=== PATIENT | female | born 1940 | race Caucasian/White ===

== ENCOUNTER 2016-12-17 16:30 | Outpatient (CLI) | payer MEDICARE ==
--- NOTE | 2016-12-17 20:51 | MRI ---
LUMBAR SPINE MRI NONCONTRAST 12/17/16 INDICATION: Spinal stenosis of lumbar region. No prior imaging comparison. FINDINGS: The conus medullaris demonstrates termination at the L1 level. There is grade I spondylolisthesis at L4-5. Multilevel end plate degenerative change with multilevel Schmorl's node formation present thr oughout the lumbar spine. There are Modic type I and II end plate degenerative changes of the L1, L2 , and L3 vertebral segments. Multilevel bilateral mild to moderate facet osteoarthritis is present. L5-S1: There is mild effacement of ventral thecal sac due to disc osteophyte complex without high gr jaimee left foraminal stenosis. There is mild narrowing of the right neural foramen. L4-5: There is severe central canal stenosis as the result of broad based disc osteophyte. Spondylol isthesis and bilateral prominent facet hypertrophy. There is mild right neural foraminal narrowing. No high grade left foraminal narrowing. L3-4: There is moderate central canal stenosis as the result of broad based disc osteophyte complex and facet hypertrophy. Mild to moderate bilateral neural foraminal stenosis present. L2-3: Broad based disc osteophyte results in mild narrowing of the central canal, mild left and mini mal right neural foraminal narrowing. L1-2: Trace retrolisthesis is present. There is disc osteophyte complex with mild narrowing of the c entral canal. Mild to moderate left and mild right neural foraminal narrowing present. IMPRESSION: Multilevel degenerative change throughout the lumbar spine. The findings are most pronounced at L4-5 where there is severe central canal stenosis, with near complete obliteration of the thecal sac. POS: NEEL
== END 2016-12-17 16:31 | disposition home or self-care (01) ==
LOC: MRI 16:30
PROVIDERS: ATTEND Internal Medicine
DX: M47.896 Other spondylosis, lumbar region (principal)
CPT/HCPCS: 72148

== ENCOUNTER 2017-04-07 22:57 | Inpatient (IN) | payer MEDICARE ==
[2017-04-07 23:51] LABS: #Eosinphils 0.2 thou/uL (0.0-0.7); #Lymphocytes 2.8 thou/uL (1.20-3.40); #Neutrophils 5.6 thou/uL (1.40-6.50); %Basophils 0.3 % (0.0-1.0); %Eosinophils 1.8 % (0.0-10.0); %Lymphocytes 29.1 % (21.0-51.0); %Monocytes 10.3 % (0.0-10.0); %Neutrophils 58.5 % (42.0-75.0); Hemoglobin 10.9 g/dL (12.0-16.0); Mean Corpuscular HGB CONC 32.5 g/dL (32.0-36.0); Mean Corpuscular Hemoglobin 30.1 pg (27.0-31.0); Mean Corpuscular Volume 92.8 fl (81.0-99.0); Mean Platelet Volume 8.6 fL (7.4-10.4); Platelet Count 296 thou/uL (130-400); RBC Distribution Width 11.8 % (11.5-14.5); Red Blood Cell (RBC) Count 3.63 mill/uL (4.20-5.40); White Blood Cell (WBC) Count 9.5 thou/uL (4.8-10.8)
[2017-04-08 00:11] LABS: ALT (SGPT) 17 U/L (8-55); AST (SGOT) 18 U/L (5-34); Alkaline Phosphatase 73 U/L (40-150); Anion Gap 17 mmol/L (10-20); BUN (Urea Nitrogen) 18 mg/dL (9.8-20.1); Bilirubin, Total 0.4 mg/dL (0.2-1.2); Calc. Creatinine Clearance 0 mL/min (70-130); Calcium 9.3 mg/dL (7.8-10.44); Carbon Dioxide 18 mmol/L (23-31); Chloride 107 mmol/L (98-107); Estimated GFR-MDRD 57; Globulin 2.8 g/dL (2.4-3.5); Glucose 86 mg/dL (83-110); Potassium 3.8 mmol/L (3.5-5.1); Protein, Total 6.8 g/dL (6.0-8.3); Sodium 138 mmol/L (136-145)
[2017-04-08 00:14] LABS: CKMB 2.7 ng/mL (0-6.6); Troponin I 0.014 ng/mL (< 0.028)
[2017-04-08] MEDS ORDERED: Ondansetron ODT 4 MG TAB SL PRN (03:22)
[2017-04-08] MEDS ORDERED: Ondansetron HCl/PF 4 MG/2 ML Vial IVP PRN (03:22)
[2017-04-08] MEDS ORDERED: Acetaminophen 325 MG TAB PO PRN (03:22)
[2017-04-08 03:39] LABS: Troponin I 0.015 ng/mL (< 0.028)
[2017-04-08] MEDS ORDERED: Acetaminophen 650 MG Suppository PR PRN (04:22)
[2017-04-08 06:16] LABS: Cardiac Risk 3.5 (Less than 4.5); Magnesium 2.1 mg/dL (1.6-2.6); Phosphorus 3.3 mg/dL (2.3-4.7)
[2017-04-08 06:20] LABS: Troponin I 0.015 ng/mL (< 0.028)
[2017-04-08 06:35] LABS: Ferritin 12.5 ng/mL (10-291); Thyroid Stimulating Hormone 3.4656 uIU/mL (0.35-4.94)
--- NOTE | 2017-04-08 06:46 | HP-2 ---
DATE OF ADMISSION: 04/08/2017 CODE STATUS: Full. PRIMARY CARE PHYSICIAN: Kierra almanza. ATTENDING: Dr. Harsh Martin RESIDENT: Dr. Loc Courtney, PGY1 SPECIALIST: Green Plumber, she is to see Dr. Godinez. CHIEF COMPLAINT: Short of breath and lightheadedness. HISTORY OF PRESENT ILLNESS: This is a 76-year-old female that comes in with chief complain t of shortness of breath and lightheaded. She says that she has been having a really bad shortness o f breath for the last couple of days to the point where she has got lightheaded. Her daughter was in the room and said that she came to let her in at the gate and for a short period did not know how to get home afterwards. She has also been having extreme fatigue. She has had the fatigue and tiredne ss for months now, but the fatigue seems to have been getting worse over the last week. Shortness of breath has been present for a few months as well, but it seems to have gotten worse over the last co uple of days. She reports that she goes to bed around 10:30 and can sleep until noon, sometimes or e oni sleep until 5:31 at one time. She said that she is getting good amount of hours of sleep, but is still feeling really tired when she gets up. She thought that she might have had a sinus infection last week. Reports having nasal congestion and some head pain right in the frontal area, also report s having a little bit of a cough. She also reports that she has had head sweating for years, but say s that over the last few days it has really gotten bad as well. Denies any fevers or chills. Denies any recent sick contacts. Reports that the last time she had a stress test was 4 years ago. Denies any chest pain. Denies any nausea, vomiting, diarrhea or constipation. Denies any rashes. Reports that she does have chronic muscle pain from her fibromyalgia. She said that with the shortness of b reath, she usually has a hard time over the long distances walking. She used to do okay, but she nba d when she will go out even in the past she would have to use a scooter at stores and stuff, but she says now she gets short of breath just walking around her house and doing little minor activities as well, so that is new. REVIEW OF SYSTEMS: All review of systems not listed in the HPI are otherwise negative at this time. PAST MEDICAL HISTORY: Asthma, hypertension, bronchitis, and fibromyalgia. PAST SURGICAL HISTORY: Tonsillectomy. ALLERGIES: PENICILLIN, SULFUR, and IODINE. MEDICATIONS: 1. Omeprazole 20 mg 3 times daily. 2. Aspirin 81 mg daily. 3. D3 1000 daily. 4. half to 1 tab at bedtime. 5. Simvastatin 20 mg or 1/2 tab. 6. Atorvastatin 20 mg daily. 7. Venlafaxine mg daily. 8. Amlodipine 5 mg daily. 9. Lisinopril 20 mg daily. 10. Tramadol 37.5/325 mg as needed. SOCIAL HISTORY: Never a smoker. Drinks occasional alcohol. No illicit drug use. PHYSICAL EXAMINATION: VITAL SIGNS: Blood pressure is 136/48, pulse is 47, respirations are 15, temperature is 98.7, pulse ox 97% on room air. Current weight 100.7 kilograms. GENERAL: She is alert and oriented x3. Well-developed, obese, appropriately interactive. Asked her to spell world backward and was able to spell it without any trouble at all. EYES: Conjunctivae within normal limits. ENT: Nasal mucosa and oropharynx within normal limit. NECK: Supple, no lymphadenopathy, no thyromegaly, no bruits, no JVD. CARDIOVASCULAR: Regular rate and rhythm, no murmurs, no gallops. Radial pulses, pedal pulses palpat ed bilaterally. RESPIRATORY: Normal breathing effort, no retractions. LUNGS: Clear to auscultation bilaterally. SKIN: Warm, dry. No lesions, no rashes. ABDOMEN: Soft, nontender to palpation. Bowel sounds are normal. There are no masses or distention. EXTREMITIES: No edema, no pitting. MUSCULOSKELETAL: Structure within normal limits, tone within normal limits. Full range of motion. NEUROLOGIC: No focal neuro deficits. Sensation within normal limits. Does have some pain on palpat ion of her upper extremities and her neck she says due to her fibromyalgia. LABORATORY DATA: White blood cell count 9.5, hemoglobin 10.9, hematocrit 33.6, MCV 92.8, platelets 2 96. Sodium 138, potassium 3.8, chloride 107, bicarb 18, BUN 18, creatinine 0.95, glucose 86. GFR is 57. CK-MB is 2.7, troponin 0.014, calcium is 9.3, total protein 7.8, albumin 4.0, total bilirubin 0 .4, AST 18, ALT 17, alkaline phosphatase 73. EKG showed a little bit of sinus tony and right bundle block. Chest x-ray read is still pending. ASSESSMENT AND PLAN: A 76-year-old female with increasing shortness of breath over the las t few days. 1. Symptomatic bradycardia. Ever since she has gotten here she has been bradycardic in the 40s. It could be a reason causing her shortness of breath, increasing, never had any heart history or report ed heart attack. We will admit to telemetry for observation. Continue to follow her on the monitor. We will likely need to consult Cardiology in the morning and await recommendations. The last time she got a stress test was 4 years ago and it was negative. May need a stress test. We will continue to trend her troponins. We will check her magnesium, phosphorus, fasting lipid panel and check a TS H as well. Some of her symptoms are increased fatigue and bradycardia may be related to hypothyroidi sm. Also, with her increased tiredness and sleeping may have a possible obstructive sleep apnea can be reason being bradycardic. I did order a CPAP to see if it helps with her symptoms. Try and use it at night and see if it helps her with sleep and tiredness. 2. Hypertension. We will continue her home medications. 3. Asthma and bronchitis. We will do DuoNebs p.r.n. She also reported having nasal congestion and cough for the last week. Maybe some sinusitis. I have prescribed Mucinex DM to see if that helped w ith any of that. 4. Fibromyalgia. I will continue her home medications. 5. Deep venous thrombosis prophylaxis, Lovenox.
--- NOTE | 2017-04-08 07:37 | RAD ---
FRONTAL RADIOGRAPH CHEST: Date: 04-07-17 Comparison: None. History: Confusion, dizziness. FINDINGS: Mild increased linear interstitial density is noted. There is no pneumothorax, pleural fluid, lobar c onsolidation, or alveolar edema. There is mild prominence of the right hilar shadow, significance uncertain. IMPRESSION: 1. Diffuse mild interstitial prominence with no focal consolidation or alveolar edema. 2. Mild prominence of the right hilar shadow, a nonspecific finding. Recommend PA and lateral imaging of the chest for further assessment. Code T POS: NEEL
[2017-04-08] MEDS: guaiFENesin/DM ER PO SCH ×2 (08:36→20:35)
[2017-04-08] MEDS: Enoxaparin Sodium 40 MG/0.4 ML SYRINGE SC SCH (08:36)
--- NOTE | 2017-04-08 12:13 | CON ---
DATE OF CONSULTATION: 04/08/2017 HISTORY OF PRESENT ILLNESS: The patient is a pleasant 76-year-old woman who presents with dyspnea and weakness. The patient states she previously had suffered a silent myocardial infarction. The patient presented to the hospital with increasing dyspnea. She noticed shortness of breath with minimal exertion. The patient denies having any PND or orthopnea. The patient denies any syncopal episode. She states at times she has felt lightheaded. The patient has several cardiac risk factors including hypertension and hypercholesterolemia. PAST MEDICAL HISTORY: 1. Hypertension. 2. History of silent myocardial infarction. 3. Asthma. 4. Fibromyalgia. PAST SURGICAL HISTORY: Tonsillectomy. ALLERGIES: PENICILLIN, SULFA and IODINE. SOCIAL HISTORY: She is a nonsmoker. MEDICATIONS ON ADMISSION: Zocor 20 at bedtime, lisinopril 20 mg daily, amlodipine 5 daily, trazodone 50 daily, omeprazole 20 daily, aspirin 81 daily, and venlafaxine 150 mg daily. REVIEW OF SYSTEMS: Ten-point system otherwise unremarkable. No history of easy bruising, bleeding, or bright red blood per rectum. PHYSICAL EXAMINATION: GENERAL: This is an obese woman, in no acute distress. VITAL SIGNS: Blood pressure 120/57. NECK: No jugular venous distention, no carotid bruits. LUNGS: Clear to auscultation. HEART: Regular rate and rhythm. Normal S1, S2. No murmurs. ABDOMEN: Distended. EXTREMITIES: Showed trace edema. SKIN: Warm and dry. NEUROLOGIC: Nonfocal. VASCULAR: Radial pulses 2+. LABORATORY RESULTS: Her sodium was 138, potassium 3.8, chloride 107, bicarbonate 18, BUN 18, creatinine 0.95, glucose is 57, troponin was 0.015. BNP is 203. Her white blood cell count is 9.5, hemoglobin 10.9, hematocrit 33.6 , platelets are 296. EKG revealed sinus bradycardia with second degree Mobitz type 1 with a right bundle-branch block. ticket speculator revealed second degree Mobitz type 2. IMPRESSION: 1. Dyspnea. 2. Symptomatic bradycardia with second degree Mobitz type 2. 3. Hypertension. 4. Asthma. 5. Fibromyalgia. 6. Dyslipidemia. 7. Obesity. This patient presents with symptomatic bradycardia with second degree AV block, Mobitz type 2. We will check the patient's echocardiogram to evaluate her left ventricular function. From a cardiac standpoint, with her symptomatic heart block, we would recommend placement of electronic pacemaker. We will follow this patient with you throughout her hospitalization. ELMER
[2017-04-08] MEDS ORDERED: PROVENTIL INHALER 6.7 G (200 INHALATIONS) INH PRN (13:18)
[2017-04-08] MEDS ORDERED: Oxybutynin 5 MG TAB PO PRN (13:18)
[2017-04-08] MEDS ORDERED: Non-Formulary Item 1 EACH (Zolpidem Tartrate [Ambien] 10 MG) PO PRN (13:18)
--- NOTE | 2017-04-08 19:06 | NM ---
VQ SCAN 04/08/17 PROVIDED CLINICAL HISTORY: Dyspnea. FINDINGS: Correlation is made with chest radiograph performed 04/07/17. 22 millicuries Xenon 133 inhalational and 5.6 millicuries technetium 99m MAA IV were administered. Th e perfusion images appear normal. There is no significant radiotracer retention. The perfusion images demonstrate a mildly inhomogeneous uptake by the lungs without evidence for a segmental pleural base d defect. IMPRESSION: No scintigraphic evidence for pulmonary embolus. POS: JUAN MANUELH
[2017-04-08] MEDS: Simvastatin 20 MG TAB PO SCH (20:34)
[2017-04-08] MEDS: Zolpidem Tartrate 5 MG TAB PO PRN (20:34)
[2017-04-09] MEDS: Calcium Carbonate 500 MG ChewTAB PO PRN ×3 (02:29→21:19)
[2017-04-09] MEDS: Lisinopril 20 MG TAB PO SCH (05:42)
[2017-04-09] MEDS: guaiFENesin/DM ER PO SCH ×2 (05:42→21:18)
[2017-04-09] MEDS: Venlafaxine HCl XR 150 MG CAP PO SCH (05:43)
[2017-04-09] MEDS: Amlodipine 5 MG TAB PO SCH (05:43)
[2017-04-09] MEDS: Enoxaparin Sodium 40 MG/0.4 ML SYRINGE SC SCH (05:44)
[2017-04-09] MEDS: Aspirin 81 mg Enteric Coated Tablet PO SCH (05:44)
--- NOTE | 2017-04-09 06:27 | PDOC.FM ---
- Objective Vital Signs & Weight: Vital Signs (12 hours) Temp Pulse Resp BP BP Pulse Ox 04/09/17 05:43 65 152/71 H 04/09/17 05:42 152/71 H 04/09/17 04:00 99.1 F 65 17 152/71 H 96 04/08/17 23:29 98.8 F 59 L 18 122/99 H 99 04/08/17 20:00 98.8 F 59 L 18 97 04/08/17 19:54 98.7 F 48 L 18 160/67 H 97 Weight Weight 102.92 kg I&O: 04/07/17 04/08/17 04/09/17 06:59 06:59 06:59 Intake Total 360 Balance 360 Result Diagrams: 04/07/17 23:38 04/07/17 23:34 Dx/Plan (1) Symptomatic bradycardia Code(s): R00.1 - BRADYCARDIA, UNSPECIFIED Status: Acute (2) HTN (hypertension) Code(s): I10 - ESSENTIAL (PRIMARY) HYPERTENSION Status: Acute (3) Asthma Code(s): J45.909 - UNSPECIFIED ASTHMA, UNCOMPLICATED Status: Acute (4) Fibromyalgia Status: Acute (5) HLD (hyperlipidemia) Code(s): E78.5 - HYPERLIPIDEMIA, UNSPECIFIED Status: Acute - Plan Plan: 1. Symptomatic Bradycardia - Cardiology consulted, appreciate Dr. Amanda's recs - Will likely need pacemaker placement - HR range from 40s-60s - Ruled out PE with V/Q scan - ECHO: EF 65-70%, Mild mitral and tricuspid regurgitation 2. HTN - Continue home medications 3. Asthma - Continue home meds 4. Fibromyalgia - Continue home meds 5. HLD - Continue Statin Disposition: Stable, will await pacemaker placement.
[2017-04-09] MEDS ORDERED: Vancomycin HCl 500 MG VIAL ONE (07:55)
[2017-04-09] MEDS ORDERED: Clindamycin/D5W 900 mg/50 ml Premix Bag ONE (07:55)
[2017-04-09] MEDS ORDERED: Levofloxacin 500 mg/D5W 100 ml Premix Bag ONE (07:57)
[2017-04-09] MEDS ORDERED: Midazolam HCl 2 mg/2 ml Vial ONE ×2 (09:31→09:32)
[2017-04-09] MEDS ORDERED: Lidocaine 1% (PF) 30 ML VIAL ONE (09:37)
[2017-04-09] MEDS ORDERED: Hydrocortisone Sod Succ/PF 100 mg/2 ml Vial ONE (09:50)
--- NOTE | 2017-04-09 11:56 | ADD-PRG ---
DATE OF SERVICE: 04/09/2017 This is an addendum to the note of Dr. George Gutierrez. Ms. Dc has just returned from her pacemaker placement. She is awake, alert, in no distress. A VQ scan performed because of her shortness of breath was negative for PE. She does have slight anemi a which we can workup as an outpatient. Likely discharge later today or tomorrow.
[2017-04-09] MEDS ORDERED: Acetaminophen 325 MG TAB PO PRN ×2 (12:52→13:04)
[2017-04-09] MEDS ORDERED: Ketorolac Tromethamine 30 MG/ML VIAL IVP SCH (13:15)
--- NOTE | 2017-04-09 13:16 | RAD ---
CHEST ONE VIEW: History: Post cardiac device placement. Comparison: Prior day. FINDINGS: Dual-lead pacer is present with leads projecting over the right atrium and right ventricle. No pneumo thorax. IMPRESSION: Status post pacemaker placement without complication. POS: NEEL
[2017-04-09 14:22] LABS: #Eosinphils 0.1 thou/uL (0.0-0.7); #Lymphocytes 1.5 thou/uL (1.20-3.40); #Monocytes 1.1 thou/uL (0.11-0.59); #Neutrophils 7.1 thou/uL (1.40-6.50); %Basophils 0.3 % (0.0-1.0); %Eosinophils 1.3 % (0.0-10.0); %Lymphocytes 15.2 % (21.0-51.0); %Monocytes 11.2 % (0.0-10.0); Hemoglobin 10.7 g/dL (12.0-16.0); Mean Corpuscular HGB CONC 32.4 g/dL (32.0-36.0); Mean Corpuscular Hemoglobin 30.3 pg (27.0-31.0); Mean Corpuscular Volume 93.6 fl (81.0-99.0); Platelet Count 255 thou/uL (130-400); RBC Distribution Width 11.9 % (11.5-14.5); Red Blood Cell (RBC) Count 3.53 mill/uL (4.20-5.40); White Blood Cell (WBC) Count 9.9 thou/uL (4.8-10.8)
[2017-04-09 14:47] LABS: Anion Gap 13 mmol/L (10-20); BUN (Urea Nitrogen) 11 mg/dL (9.8-20.1); Calc. Creatinine Clearance 93 mL/min (70-130); Calcium 9.4 mg/dL (7.8-10.44); Carbon Dioxide 20 mmol/L (23-31); Chloride 108 mmol/L (98-107); Estimated GFR-MDRD 68; Glucose 109 mg/dL (83-110); Potassium 3.8 mmol/L (3.5-5.1); Sodium 137 mmol/L (136-145)
--- NOTE | 2017-04-09 16:15 | CCL ---
DATE OF PROCEDURE 04/09/2017 PROCEDURE: A 76-year-old female who has developed a second degree AV heart block, type II with severe bradycardi a was advised to undergo dual-chamber pacemaker insertion. She was taken to cardiac catheterization lab, prepped, and draped in sterile fashion. Using the left subclavian approach, after careful disse ction, the pacemaker wires were easily placed into the right ventricle and into the right atrium with out any significant complications or difficulties. We did at one time give approximately 10 mL of co ntrast material for evaluation of left subclavian vein. We were unable to visualize the vein and even tually were able to engage the vein using modified Seldinger technique without further difficulties. There were no difficulties or complications encountered. The pacemaker was a dual chamber pacemaker , Advisa MRI compatible device with two screw in leads, one in the atrium and one in the ventricle. Pacemaker was set with the upper rate of 120 and the lower rate was set at 60. The patient was given 1 hour conscious sedation with IV Versed as well as morphine. She tolerated th is well during the entire procedure. She was monitored on independence are present for heart rate, b lood pressure, and O2 saturations. She has remained stable throughout the procedure without complica tions.
[2017-04-09] MEDS ORDERED: Ketorolac Tromethamine 30 MG/ML VIAL IVP PRN (18:26)
--- NOTE | 2017-04-09 21:13 | HP ---
DATE OF ADMISSION: 04/08/2017 CODE STATUS: FULL CODE. The patient has advanced directives, not available at present. PRIMARY CARE PHYSICIAN: Dr. Avila. CHIEF COMPLAINT: Shortness of breath and dizziness for the last several days. HISTORY OF PRESENT ILLNESS: A 76-year-old female with recent progressive marked dyspnea on exertion. Her daughter checked on her and found her confused, while driving could not find her way back home. The patient was taken to [facility] and found in profound symptomatic bradycardia, heart rate in the 40s. She was admitted for further observation and Cardiology consult. ALLERGIES: IODINE, which causes swelling and shortness of breath; SULFA, rash, nausea, and vomiting; PENICILLIN causes rash. CURRENT MEDICATIONS: Simvastatin 20 mg at bedtime, aspirin 81 mg daily, albuterol p.r.n., over the c ounter Tums, Effexor 150 XR daily, tramadol 50 q.6 hours p.r.n., oxybutynin 5 mg daily currently on hold, lisinopril 20 mg daily, vitamin D3 2000 units daily, Prilosec 20 mg daily, amlodipine 5 daily. HABITS: She is a nonsmoker, social drinker. SOCIAL HISTORY: for 59 years, has 4 children, 3 daughters and one son, who lived in [place] for years, moved to [place] to be near her daughter and recently has not been back in this area for the last 3 years. PRIOR HOSPITALIZATION: She was admitted in the with pneumonia. PAST SURGICAL HISTORY: Tonsillectomy at 4 years of age, dilation and curettage in the past, history of basal cell carcinoma of the nose and lower extremities operated by Dr. Melchor in [place], [place]. FAMILY HISTORY: Her father had metastatic melanoma, at 91 years of age. He also had dementia a nd heart disease. She had a sister who at 75 years of age with respiratory distress. REVIEW OF SYSTEMS: Constitutional: Recent fatigue, worsening dyspnea on exertion for the last few w eeks. She denies any fever or chills. She has had some recent congestion and has recently been roque edly fatigue and sleeping excessively up to 12 hours a day and has been hypersomnolent. Psychiatric: She denies any mental illness. No suicidal or homicidal ideation. No psychosis. Cardiovascular: History of prior stress test and was advised previously in [place] to consider pacemaker. She julia es any orthopnea, chest pain, palpitation, but has been told she has had an abnormal EKG in the past. Pulmonary: History of asthmatic bronchitis. She was hospitalized in the remote past with pneumoni a. GI: Recent indigestion, history of gastroesophageal reflux disease. She denies any melena, incr easing belching lately. She denies nausea, vomiting or diarrhea. Genitourinary: History of nephrol ithiasis. Neurologic: She denies any syncopal episodes, seizures, recent dizziness. No headaches. Mild confusion and has been sleeping excessively over 12 hours a day recently. Musculoskeletal: History of fibromyalgia, history of degenerative joint disease and was advised in t he past, she may benefit from a right total knee replacement with bone on bone disease to the left kn ee and also recently diagnosed with spinal stenosis, history of low back pain for several years. PHYSICAL EXAMINATION: GENERAL: She is alert, overweight female, in no apparent distress, resting comfortably in bed. VITAL SIGNS: She weighs 107.9 kilos, BMI is 37, temperature is 98.7, BP is 134/60, pulse is in the 4 0s, respirations are 18. HEENT: Atraumatic, normocephalic. Extraocular motor intact. Pupils equal, round, reactive. NECK: Supple. There is no apparent JVD or bruit appreciated. CARDIOVASCULAR: Marked bradycardia. No murmur. No gallop. PULMONARY: Clear to auscultation at the bases. No wheezing appreciated. ABDOMEN: Obese, nontender. MUSCULOSKELETAL: DJD deformities of the knees and hands. EXTREMITIES: Show no cyanosis, no clubbing. There is no edema. SKIN: Notable for prior surgery of nose. NEUROLOGICAL: Nonlocalizing. She is alert and oriented x3. LABORATORY DATA: Shows hemoglobin of 10.9, hematocrit 33, platelets 296,000, and white cells 9500. BNP is 203, magnesium 2.1. Sodium 138, potassium 3.8, chloride 102, bicarbonate 18, BUN 18, creatini ne 0.05. EKG notable for Mobitz type 2 heart block with a rate in the 40s. ASSESSMENT: Heart block, marked symptomatic bradycardia, Mobitz II with dyspnea on exertion. Histor y of notable anemia, normochromic normocytic, history of gastroesophageal reflux disease, history of hypertension, history of dyslipidemia, history of fibromyalgia, history of spinal stenosis, history o f obesity with snoring, no documented apnea, questionable obstructive sleep apnea. PLAN: The patient has been admitted. Cardiology consult has been obtained and she is being consider ed for permanent pacemaker placement. Anemia, we will need further GI evaluation when the patient is stable.
[2017-04-09] MEDS: Simvastatin 20 MG TAB PO SCH (21:18)
[2017-04-09] MEDS: Zolpidem Tartrate 5 MG TAB PO PRN (21:19)
--- NOTE | 2017-04-10 06:24 | PDOC.FM ---
- Subjective Subjective: Patient states she feels well. She states she has not been up and walking around much to see if she is has sob as she was previous to the procedure. She denies n/v/d, fevers, or chills. She does admit that she has pain all over, but there is no difference in the pain from her baseline with fibromyalgia. She states she hasn't decided on a chemical engineering technician to establish with since Dr. Godinez went to [facility], but she will be given the information before leaving the hospital. She has no other concerns this morning. - Objective Vital Signs & Weight: Vital Signs (12 hours) Temp Pulse Resp BP Pulse Ox 04/10/17 04:00 98.1 F 78 18 124/59 L 96 04/10/17 00:00 98.6 F 83 18 117/58 L 97 04/09/17 20:00 98.6 F 77 18 117/54 L 96 Weight Weight 102.92 kg I&O: 04/08/17 04/09/17 04/10/17 06:59 06:59 06:59 Intake Total 360 790 Balance 360 790 Result Diagrams: 04/09/17 14:05 04/09/17 14:05 Phys Exam - Physical Examination Constitutional: NAD HEENT: PERRLA, moist MMs Neck: no nodes Respiratory: no wheezing, clear to auscultation bilateral Cardiovascular: RRR, no significant murmur Gastrointestinal: soft, non-tender, no distention, positive bowel sounds Musculoskeletal: no edema, pulses present Neurological: non-focal, normal sensation, moves all 4 limbs Lymphatic: no nodes Psychiatric: normal affect, A&O x 3 Skin: no rash Dx/Plan (1) Symptomatic bradycardia Code(s): R00.1 - BRADYCARDIA, UNSPECIFIED Status: Resolved (2) HTN (hypertension) Code(s): I10 - ESSENTIAL (PRIMARY) HYPERTENSION Status: Acute (3) Asthma Code(s): J45.909 - UNSPECIFIED ASTHMA, UNCOMPLICATED Status: Acute (4) Fibromyalgia Status: Acute (5) HLD (hyperlipidemia) Code(s): E78.5 - HYPERLIPIDEMIA, UNSPECIFIED Status: Acute (6) S/P placement of cardiac pacemaker Code(s): Z95.0 - PRESENCE OF CARDIAC PACEMAKER Status: Acute - Plan Plan: 1. Symptomatic Bradycardia - Cardiology consulted, appreciate Dr. Amanda's recs - s/p pacemaker placement - Ruled out PE with V/Q scan - ECHO: EF 65-70%, Mild mitral and tricuspid regurgitation 2. HTN - Continue home medications 3. Asthma - Continue home meds 4. Fibromyalgia - Continue home meds 5. HLD - Continue Statin 6. S/P placement of pacemaker placement - Will await cards recs - Can be discharged when cleared from Cardiology Disposition: Stable, will await Cards recs.
[2017-04-10] MEDS: Amlodipine 5 MG TAB PO SCH (08:47)
[2017-04-10] MEDS: Aspirin 81 mg Enteric Coated Tablet PO SCH (08:48)
[2017-04-10] MEDS: Venlafaxine HCl XR 150 MG CAP PO SCH (08:48)
[2017-04-10] MEDS: guaiFENesin/DM ER PO SCH (08:48)
[2017-04-10] MEDS: Enoxaparin Sodium 40 MG/0.4 ML SYRINGE SC SCH (08:49)
[2017-04-10] MEDS: Lisinopril 20 MG TAB PO SCH (08:49)
[2017-04-10 09:25] VITALS: TEMP 98.5
--- NOTE | 2017-04-10 12:46 | PRG ---
DATE: 04/10/2017 Ms. Dc looks and feels fine this morning. She is ready for discharge. Pacemaker working approp riately with pulse rate of 70 and with normal vital signs. She will follow up with her PCP as an out patient for her iron deficiency.
[2017-04-10 15:51] VITALS: BP 119/60
--- NOTE | 2017-04-11 13:27 | DIS-2 ---
DATE OF ADMISSION: 04/08/2017 DATE OF DISCHARGE: 04/10/2017 RESIDENT: Dr. George Gutierrez ADMITTING ATTENDING: Dr. Leonard Carmichael DISCHARGE ATTENDING: Dr. Harsh Martin CONSULTS: Cardiology, Dr. Amanda and Cardiac Rehab. PROCEDURES: The patient underwent a chest x-ray on 04/07/2017 that showed diffuse mild interstitial prominence with no focal consolidation or alveolar edema. Mild prominence of the right hilar shadow, nonspecific finding, recommended PA and lateral imaging of the chest for further assessment. The patient also underwent an echocardiogram on 04/08/2017 that showed ejection fraction is visually estimated at 65-70%. Left atrium is mildly dilated. Left ventricle size is normal. Mild mitral regurgitation is present and mild tricuspid regurgitation. The patient also underwent a VQ pulmonary perfusion scan to rule out a DVT on that showed no scintigraphic evidence of pulmonary embolus. Next, the patient underwent a cardiac catheterization for pacemaker placement on 04/09/[address] Cedillo and had a pacemaker was set with an upper rate of 120 and the lower rate was set at 60. The patient had a chest x-ray on 04/09/2017 to confirm pacemaker placement and that showed status post pacemaker placement without complication. PRIMARY DISCHARGE DIAGNOSES: 1. Symptomatic bradycardia. 2. Hypertension. 3. Asthma. 4. Fibromyalgia. 5. Hyperlipidemia. 6. Status post placement of a cardiac pacemaker. DISCHARGE MEDICATIONS: 1. Ditropan 5 mg p.o. daily. 2. Effexor XR 150 mg p.o. daily. 3. Zocor 10 mg p.o. at bedtime. 4. Aspirin 81 mg p.o. daily. 5. Norvasc 5 mg p.o. daily. 6. Omeprazole 20 mg p.o. b.i.d. 7. Lisinopril 20 mg p.o. daily. 8. Vitamin D3 2000 units p.o. daily. 9. Albuterol ProAir HFA 8.5 g 1 puff inhaled q.4 hours. 10. Ambien 10 mg p.o. at bedtime. 11. Tramadol, acetaminophen 37.5/325 1-2 tabs p.o. q.6 hour p.r.n. DISCONTINUED MEDICATIONS: None. HISTORY OF PRESENT ILLNESS/HOSPITAL COURSE: This is a 76-year-old female that comes in with chief complaint of shortness of breath and lightheadedness. She states she has been having really shortness of breath for the last couple of days to the point where she had got lightheaded. Her daughter was in the room and said that she came to let her at a gate and for a short period did not know how to get home afterwards. She also has been having extreme fatigue. She has had fatigue and tiredness for months now, but fatigue seems to have been getting worse over the last week. Shortness of breath has been present for a few months as well, but it seems to have gotten worse over the last couple of days. She reports that she goes to bed around 10:30 and can sleep until noon, sometimes or even sleep until 5:30 at one time. She states she is getting good amount of hours of sleep, but is still feeling very tired when she gets up. She thought she might have a sinus infection last week. She reports having nasal congestion and some head pain right in the frontal area. Also reports having a little bit of cough. She also reports that she has had a head sweating for years, but says over the last few days it has really gotten bad as well. Denies any fevers or chills. Denies any recent sick contacts. Reports that the last time she had a stress test was 4 years ago. She denies any chest pain. She denies nausea, vomiting, diarrhea or constipation. She denies any rashes. She reports that she does have chronic muscle pain from her fibromyalgia. She said that with the shortness of breath she usually has a hard time on her long distances walking. She used to do okay, but she said when she will go out even in the past, she would use a scooter at stores and stuff, but she now gets so short of breath walking around her house and doing normal activities as well. During this hospitalization, the patient was found to have asymptomatic bradycardia with a Mobitz type 2 AV block per cardiology consultation with Dr. Amanda. At that time it was decided that she needed to get a pacemaker placement for her bradycardia as well as an echocardiogram to ensure that nothing else was going on. The echocardiogram showed a preserved ejection fraction and otherwise a normal exam. The patient underwent a cardiac pacemaker placement by Dr. Cedillo and 04/09/2017 and had routine postop care with no complications. The patient had some notable lab values during this hospitalization of a hemoglobin of 10.9 down to 10.7. D-dimer 0.50, BNP of 203 , an iron of 48, ferritin of 12.5. TSH of 3.4. The patient was afebrile during the entire hospitalization and had normotensive blood pressures. Two elevated blood pressures that ranged from 117/54 to as high as 172/77. She was asymptomatic during this time and so we discontinued her home regimen and on the day of discharge, her blood pressure is 128/60. The patient did have a heart rate that ranged from the 40s up to 60s pre-pacemaker, but then after that time her heart rate remained in the 70s and 80s going forward. The patient was found to have a significant iron deficiency anemia, but she was not interested in working that up too much. We do recommend that she go up and have a follow up GI consultation for this iron deficiency anemia as she is a postmenopausal woman and a colonoscopy would be warranted at this time. She opted to do this as an outpatient followup. The patient steadily made progress , underwent a walk test. The patient underwent cardiac rehab testing, showed increase strength and endurance to progressive gait training, and scheduling outpatient cardiac rehab going forward. She stated that she was probably going to join a wellness class and was going to try to continue her rehab there at that time. The patient had notable historical findings of sleep apnea as she is an obese woman with some subjective snoring and apneic episodes per her family. Also, with her progressive tiredness throughout the day, could be attributed to her symptomatic bradycardia, but could also be attributed to her obstructive sleep apnea. She is adamant that she does not have obstructive sleep apnea and is not willing to undergo any testing at this time; however, we do recommend that she undergo formal testing for obstructive sleep apnea as this could help improve her quality of life as well as her fatigue that she is experiencing. The patient otherwise had no further complications during this hospitalization and was discharged in appropriate condition. DISPOSITION: Stable. DISCHARGE INSTRUCTIONS: 1. Location. She will be discharged home to the care of herself and her family. 2. Diet will be a heart healthy diet. 3. Activity will be with cardiopulmonary limitations. 4. Followup: Follow up will be with Dr. Cedillo in 10 days as well as establishing with a new primary care physician in 1 week since her previous primary care physician had since left [facility]. [place]
== END 2017-04-10 13:39 | disposition home or self-care (01) | DRG 244 ==
LOC: ERS 22:57 → OBSVTOIN 04-08 02:10 → 2SW 04-08 02:10 → 2NO 04-09 16:00
PROVIDERS: ADMIT Family Medicine; ATTEND Family Medicine
PROC: 0JH606Z Insertion of Pacemaker, Dual Chamber into Chest Subcutaneous Tissue and Fascia, Open Approach (ICD-10-PCS; principal; 2017-04-09)
PROC: 02H63JZ Insertion of Pacemaker Lead into Right Atrium, Percutaneous Approach (ICD-10-PCS; 2017-04-09)
PROC: 02HK3JZ Insertion of Pacemaker Lead into Right Ventricle, Percutaneous Approach (ICD-10-PCS; 2017-04-09)
DX: R00.1 Bradycardia, unspecified (principal); D50.9 Iron deficiency anemia, unspecified; I44.1 Atrioventricular block, second degree; E66.9 Obesity, unspecified; G47.33 Obstructive sleep apnea (adult) (pediatric); Z68.37 Body mass index [BMI] 37.0-37.9, adult; E78.5 Hyperlipidemia, unspecified; I10 Essential (primary) hypertension; J45.909 Unspecified asthma, uncomplicated; M79.7 Fibromyalgia; Z78.0 Asymptomatic menopausal state; R09.81 Nasal congestion; K21.9 Gastro-esophageal reflux disease without esophagitis; Z91.041 Radiographic dye allergy status
CPT/HCPCS: 33211; 33249; 36005; 36415; 71045; 75820; 78582; 80048; 80053; 80061; 82553; 82728; 83540; 83550; 83735; 83880; 84100; 84443; 84484; 85025; 85379; 93005; 93306; 93798; 96360; 99152; 99153; A4216; A9540; A9558; C1785; C1898; J1650; J1720; J1885; J1956; J2001; J2250; J3370; J3490

== ENCOUNTER 2017-04-10 18:29 | Emergency (ER) | payer MEDICARE ==
[2017-04-10] MEDS ORDERED: HYDROcodone/Acetaminophen 10/325 mg Tablet ONE (19:19)
--- NOTE | 2017-04-10 21:36 | ULT ---
LEFT UPPER EXTREMITY VENOUS DOPPLER 04/10/17 PROVIDED CLINICAL HISTORY: Left arm edema. FINDINGS: Godinez scale and color doppler sonography with spectral analysis was performed of the left internal jug ular, subclavian, axillary, basilic, cephalic, brachial, radial and ulnar veins, demonstrating a norm al sonographic appearance to each. IMPRESSION: No sonographic evidence for left upper extremity deep venous thrombosis. POS: JUAN MANUEL
--- NOTE | 2017-04-12 15:15 | EKG ---
Test Reason : EMERGENCY EXAM Blood Pressure : / mmHG Vent. Rate : 092 BPM Atrial Rate : 092 BPM P-R Int : 162 ms QRS Dur : 158 ms QT Int : 438 ms P-R-T Axes : 061 -78 086 degrees QTc Int : 541 ms Atrial-sensed ventricular-paced rhythm Abnormal ECG Confirmed by MAGDALENE MALDONADO, JOHN ([id number]), features editor JENNIFER LAWS ([id number]) on 04/12/2017 3:14:56 PM Referred By: Confirmed By:JOHN DEL CASTILLO MD
== END 2017-04-10 21:20 | disposition home or self-care (01) ==
LOC: ERS 18:29
DX: L03.114 Cellulitis of left upper limb (principal); I25.2 Old myocardial infarction; I10 Essential (primary) hypertension; J45.909 Unspecified asthma, uncomplicated; Z79.82 Long term (current) use of aspirin; Z79.899 Other long term (current) drug therapy
CPT/HCPCS: 93005

== ENCOUNTER 2017-04-19 16:35 | Emergency (ER) | payer MEDICARE | END 2017-04-19 17:35 | disposition home or self-care (01) | LOC: ERS 16:35 | DX: L03.114 Cellulitis of left upper limb (principal); I25.2 Old myocardial infarction; I10 Essential (primary) hypertension; J45.909 Unspecified asthma, uncomplicated; Z79.82 Long term (current) use of aspirin; Z79.899 Other long term (current) drug therapy | CPT/HCPCS: 99283 ==

== ENCOUNTER 2017-05-29 11:04 | Outpatient (CLI) | payer MEDICARE, OTHER ==
--- NOTE | 2017-05-29 13:50 | RAD ---
CHEST PA AND LATERAL 2 VIEWS: Date: 05/29/17 HISTORY: 76-year-old female with anterior chest wall pain. COMPARISON: 04/09/17. FINDINGS: Left ICD. Stable appearing increased linear and interstitial markings, particularly in the mid and lo wer lung zones. No confluent pneumonia, overt edema, or pleural effusion. IMPRESSION: Overall stable appearing increased linear and interstitial markings. Left ICD. Atherosclerosis of aor ta with some ectasia. No evidence for significant acute process. POS: [facility]
== END 2017-05-29 11:05 | disposition home or self-care (01) ==
LOC: RAD 11:04
PROVIDERS: ATTEND Internal Medicine Infectious Disease
DX: R07.89 Other chest pain (principal); R22.32 Localized swelling, mass and lump, left upper limb; I70.0 Atherosclerosis of aorta; I77.819 Aortic ectasia, unspecified site
CPT/HCPCS: 71046; 85025; 86140

== ENCOUNTER 2017-05-30 13:50 | Outpatient (CLI) | payer MEDICARE ==
--- NOTE | 2017-05-30 15:59 | ULT ---
SOFT TISSUE SONOGRAM LEFT CHEST AND ARM: 05/30/17 HISTORY: Pain. Mass. FINDINGS: Sonographic evaluation of the left chest in region of palpable concern shows the cardiac pacer pack. No solid or cystic masses. No fluid collections. IMPRESSION: No significant abnormalities are demonstrated. POS: [facility]
--- NOTE | 2017-05-30 15:59 | ULT ---
LEFT UPPER EXTREMITY VENOUS DUPLEX SONOGRAM: HISTORY: Left arm pain and swelling. FINDINGS: The left subclavian and internal jugular veins were evaluated along with the brachial, axillary, ceph alic, and basilic veins. There is good color and spectral Doppler flow and compression. IMPRESSION: No sonographic evidence of deep vein thrombosis left upper extremity. POS: [facility]
== END 2017-05-30 13:51 | disposition home or self-care (01) ==
LOC: ULT 13:50
PROVIDERS: ATTEND Internal Medicine Infectious Disease
DX: R22.32 Localized swelling, mass and lump, left upper limb (principal)
CPT/HCPCS: 76999

== ENCOUNTER 2017-10-06 15:25 | Outpatient (CLI) | payer MEDICARE | END 2017-10-06 15:26 | disposition home or self-care (01) | LOC: BICMAMMO 15:25 | PROVIDERS: ATTEND Internal Medicine | DX: Z12.31 Encounter for screening mammogram for malignant neoplasm of breast (principal) | CPT/HCPCS: 77063; 77067 ==

== ENCOUNTER 2018-06-24 11:37 | Outpatient (CLI) | payer MEDICARE ==
--- NOTE | 2018-06-24 12:16 | RAD ---
EXAM: Two views chest PROVIDED CLINICAL HISTORY: Cough COMPARISON: 05/29/2017 FINDINGS: Cardiac and mediastinal silhouette appears within normal limits. Lungs appear free of significant opa city. No pleural fluid or pneumothorax apparent. Left subclavian cardiac pacing device is redemonstra lanny in similar position. Degenerative changes involve the thoracic spine. Small hiatal hernia. IMPRESSION: No evidence for an acute cardiopulmonary process.
--- NOTE | 2018-06-24 12:16 | RAD ---
EXAM: 2 views right hip PROVIDED CLINICAL HISTORY: Pain FINDINGS: There is no evidence for fracture or other acute osseous abnormality. Alignment appears anatomic. Ivon nt spaces appear preserved. IMPRESSION: No evidence for an acute osseous abnormality. If there is persistent clinical concern, conservative m anagement and follow-up imaging advised.
--- NOTE | 2018-06-24 12:18 | RAD ---
EXAM: XR Knee Rt 3 View PROVIDED CLINICAL HISTORY: Knee pain COMPARISON: None FINDINGS: Osteophyte formation is seen about the knee. Prominent patellofemoral joint space narrowing suspected . No evidence for fracture or other acute osseous abnormality. Alignment appears anatomic. Joint spac es appear otherwise preserved. IMPRESSION: Degenerative changes without evidence for an acute osseous abnormality. If there is persistent clinic al concern, conservative management and follow-up imaging advised.
== END 2018-06-24 11:38 | disposition home or self-care (01) ==
LOC: BICRAD 11:37
PROVIDERS: ATTEND Internal Medicine
DX: M25.561 Pain in right knee (principal); R05 Cough; M25.551 Pain in right hip; M17.11 Unilateral primary osteoarthritis, right knee
CPT/HCPCS: 71046

== ENCOUNTER 2020-01-06 12:59 | Outpatient (CLI) | payer MEDICARE ==
--- NOTE | 2020-01-06 13:59 | RAD ---
LUMBAR SPINE 2 VIEWS: Date: 01/06/2020 HISTORY: Lumbar degenerative disc disease. Low back pain. FINDINGS: Scoliotic curvature of the lumbar spine with convexity to the right is seen with apex at L2. On the l ateral view, the vertebral bodies maintain height and alignment. Prominent anterior and lateral osteo phytes. Slight anterolisthesis at L4-5. Prominent facet hypertrophy. Loss of disc space with degenerative dis c changes at all levels. IMPRESSION: Moderate degenerative changes of the lumbar spine. Mild anterolisthesis at L4-5. Scoliotic curvature with convexity to the right. POS: [facility]
--- NOTE | 2020-01-06 14:00 | RAD ---
THORACIC SPINE 3 VIEWS: Date: 01/06/2020 HISTORY: Back pain. FINDINGS: Thoracic vertebra maintain height and alignment. Moderate degenerative changes are noted with anterio r and lateral osteophytes. No compression deformity. No lytic or blastic process. Slight curvature of the thoracolumbar spine in the AP projection. IMPRESSION: Moderate degenerative changes of the thoracic spine. POS: [facility]
== END 2020-01-06 13:00 | disposition home or self-care (01) ==
LOC: BICRAD 12:59
PROVIDERS: ATTEND Internal Medicine
DX: M51.36 Other intervertebral disc degeneration, lumbar region (principal); M47.816 Spondylosis without myelopathy or radiculopathy, lumbar region; M47.814 Spondylosis without myelopathy or radiculopathy, thoracic region; M43.16 Spondylolisthesis, lumbar region; M41.9 Scoliosis, unspecified
CPT/HCPCS: 36415; 72072; 72100; 80053; 80061; 82306; 83036; 83970; 84443; 85025

== ENCOUNTER 2022-10-29 14:08 | Outpatient (CLI) | payer MEDICARE | END 2022-10-29 14:09 | disposition home or self-care (01) | LOC: RAD 14:08 | PROVIDERS: ATTEND Internal Medicine | DX: J32.9 Chronic sinusitis, unspecified (principal) | CPT/HCPCS: 71046 ==

== ENCOUNTER 2023-06-06 12:45 | Outpatient (CLI) | payer MEDICARE | END 2023-06-06 12:46 | disposition home or self-care (01) | LOC: BICRAD 12:45 | PROVIDERS: ATTEND Family Medicine | DX: R05.3 Chronic cough (principal) | CPT/HCPCS: 71046; 87635 ==

== ENCOUNTER 2023-06-10 18:38 | Inpatient (IN) | payer MEDICARE, OTHER ==
[2023-06-10 20:00] LABS: #Basophils 0.03 10x3/uL (0.0-0.2); %Basophils 0.2 % (0.0-1.0); %Eosinophils 3.4 % (0.0-10.0); %Lymphocytes 15.2 % (21.0-51.0); %Monocytes 11.6 % (0.0-10.0); %Neutrophils 68.9 % (42.0-75.0); Hematocrit 37.9 % (36.0-47.0); Hemoglobin 12.5 g/dL (12.0-16.0); Mean Corpuscular Hemoglobin 31.7 pg (27.0-31.0); Mean Corpuscular Volume 96.2 fL (78.0-98.0); Mean Platelet Volume 12.2 fL (7.4-10.4); Platelet Count 347 10x3/uL (130-400); Red Blood Cell (RBC) Count 3.94 mill/uL (4.20-5.40)
[2023-06-10] MEDS ORDERED: methylPREDNISolone Sod Succ/PF 125 MG/2 ML VIAL ONE (20:06)
[2023-06-10] MEDS ORDERED: cefTRIAXone (ROCEPHIN) 2 GM VIAL ONE (20:06)
[2023-06-10] MEDS ORDERED: Sodium Chloride 0.9% 100 ML ONE (20:07)
[2023-06-10 20:17] LABS: ALT (SGPT) 58 U/L (8-55); AST (SGOT) 54 U/L (5-34); Albumin 3.6 g/dL (3.4-4.8); Alkaline Phosphatase 171 U/L (40-110); Anion Gap 12 mmol/L (10-20); BUN (Urea Nitrogen) 10 mg/dL (9.8-20.1); Bilirubin, Total 0.7 mg/dL (0.2-1.2); Calc. Creatinine Clearance 0 mL/min (70-130); Calcium 9.6 mg/dL (7.8-10.44); Carbon Dioxide 24 mmol/L (23-31); Chloride 102 mmol/L (98-107); Estimated GFR 68; Globulin 3.6 g/dL (2.4-3.5); Glucose 148 mg/dL (83-110); Magnesium 1.7 mg/dL (1.6-2.6); Potassium 3.6 mmol/L (3.5-5.1); Protein, Total 7.2 g/dL (5.8-8.1); Sodium 134 mmol/L (136-145)
[2023-06-10 20:22] LABS: Troponin I 0.019 ng/mL (< 0.028)
[2023-06-10] MEDS ORDERED: Acetaminophen 500 MG TAB ONE (20:29)
[2023-06-10] MEDS ORDERED: Acetaminophen 325 MG TAB PO PRN (20:47)
[2023-06-10] MEDS ORDERED: Bisacodyl 5 MG TAB PO PRN (20:47)
[2023-06-10] MEDS ORDERED: Ipratropium/Albuterol 3 ML NEB ONE ×2 (20:49→20:53)
[2023-06-10] MEDS ORDERED: Azithromycin 500 MG VIAL ONE (20:51)
[2023-06-10] MEDS ORDERED: Famotidine 20 MG TAB PO SCH (21:00)
[2023-06-10] MEDS ORDERED: hydrALAZINE 25 MG TAB PO PRN (22:12)
[2023-06-10] MEDS ORDERED: Zolpidem Tartrate 5 MG TAB PO PRN (22:15)
[2023-06-10 22:47] VITALS: BMI 38.2
[2023-06-10 23:04] LABS: Influenza A by NAA Not Detected (NotDetected); Influenza B by NAA Not Detected (NotDetected); SARS-CoV-2 NAA Rapid Test Not Detected (NotDetected)
[2023-06-11] MEDS: guaiFENesin/Codeine 200 mg/20 mg 10 ml Cup PO SCH ×2 (00:10→09:36)
[2023-06-11 00:53] LABS: Legionella Urinary Ag Negative (Negative); Strep pneumo Urine Ag NEGATIVE (NEGATIVE)
[2023-06-11] MEDS: Albuterol 2.5 MG (3 mL) NEB NEB SCH (02:51)
[2023-06-11] MEDS: metroNIDAZOLE 500 MG in Premix 1 BAG IVPB SCH (05:19)
[2023-06-11 06:21] LABS: #Basophils Less than 0.03 10x3/uL (0.0-0.2); #Eosinphils Less than 0.03 10x3/uL (0.0-0.7); %Basophils 0.1 % (0.0-1.0); %Lymphocytes 9.4 % (21.0-51.0); %Monocytes 3.3 % (0.0-10.0); %Neutrophils 86.4 % (42.0-75.0); Hematocrit 34.5 % (36.0-47.0); Hemoglobin 11.4 g/dL (12.0-16.0); Mean Corpuscular Hemoglobin 31.8 pg (27.0-31.0); Mean Corpuscular Volume 96.4 fL (78.0-98.0); Mean Platelet Volume 12.1 fL (7.4-10.4); Platelet Count 265 10x3/uL (130-400); Red Blood Cell (RBC) Count 3.58 mill/uL (4.20-5.40)
[2023-06-11 06:45] LABS: ALT (SGPT) 53 U/L (8-55); AST (SGOT) 42 U/L (5-34); Albumin 3.2 g/dL (3.4-4.8); Alkaline Phosphatase 152 U/L (40-110); Anion Gap 14 mmol/L (10-20); BUN (Urea Nitrogen) 12 mg/dL (9.8-20.1); Bilirubin, Total 0.3 mg/dL (0.2-1.2); Calc. Creatinine Clearance 81 mL/min (70-130); Calcium 9.5 mg/dL (7.8-10.44); Carbon Dioxide 21 mmol/L (23-31); Chloride 106 mmol/L (98-107); Estimated GFR 68; Globulin 3.3 g/dL (2.4-3.5); Glucose 286 mg/dL (83-110); Potassium 3.4 mmol/L (3.5-5.1); Protein, Total 6.5 g/dL (5.8-8.1); Sodium 138 mmol/L (136-145)
[2023-06-11] MEDS: Budesonide 0.5 MG/2 ML NEB INH SCH (07:19)
[2023-06-11] MEDS ORDERED: traMADol HCl 50 MG TAB PO SCH (09:00)
[2023-06-11] MEDS: Aspirin 81 mg Enteric Coated Tablet PO SCH (09:35)
[2023-06-11] MEDS: Amlodipine 5 MG TAB PO SCH (09:35)
[2023-06-11] MEDS: Lisinopril 20 MG TAB PO SCH (09:36)
[2023-06-11] MEDS: cefTRIAXone\\ROCEPHIN 1 GM in Sodium Chloride 0.9% 100 ML IVPB SCH (09:36)
[2023-06-11] MEDS: Enoxaparin 40 MG (0.4 mL) SYRINGE SC SCH (09:36)
[2023-06-11] MEDS: methylPREDNISolone Sod Succ 40 MG VIAL IVP SCH (09:37)
[2023-06-11] MEDS: Venlafaxine HCl XR 150 MG CAP PO SCH (09:37)
[2023-06-11] MEDS: Carvedilol 6.25 MG TAB PO SCH ×2 (13:21→20:12)
[2023-06-11] MEDS: Azithromycin 500 MG in Sodium Chloride 0.9% 250 ML 250 ML IVPB SCH (14:21)
[2023-06-11] MEDS ORDERED: Acetaminophen W/ Codeine 5 ML UDCUP PO PRN (17:46)
[2023-06-11] MEDS: Benzonatate 100 MG CAP PO PRN (18:28)
[2023-06-11] MEDS: Simvastatin 10 MG TAB PO SCH (20:09)
[2023-06-11] MEDS: traMADol HCl 50 MG TAB PO SCH (20:09)
[2023-06-11] MEDS: Acetaminophen 325 MG TAB PO SCH (20:11)
[2023-06-12 05:06] LABS: #Basophils 0.04 10x3/uL (0.0-0.2); #Eosinphils Less than 0.03 10x3/uL (0.0-0.7); %Basophils 0.2 % (0.0-1.0); %Lymphocytes 4.3 % (21.0-51.0); %Monocytes 4.7 % (0.0-10.0); %Neutrophils 89.7 % (42.0-75.0); Hematocrit 32.9 % (36.0-47.0); Hemoglobin 10.7 g/dL (12.0-16.0); Mean Corpuscular HGB CONC 32.5 g/dL (32.0-36.0); Mean Corpuscular Hemoglobin 31.9 pg (27.0-31.0); Mean Corpuscular Volume 98.2 fL (78.0-98.0); Mean Platelet Volume 12.5 fL (7.4-10.4); Platelet Count 317 10x3/uL (130-400); RBC Distribution Width 12.2 % (11.5-14.5); Red Blood Cell (RBC) Count 3.35 mill/uL (4.20-5.40)
[2023-06-12 05:44] LABS: ALT (SGPT) 51 U/L (8-55); AST (SGOT) 47 U/L (5-34); Albumin 3.2 g/dL (3.4-4.8); Alkaline Phosphatase 139 U/L (40-110); Anion Gap 15 mmol/L (10-20); BUN (Urea Nitrogen) 16 mg/dL (9.8-20.1); Bilirubin, Total 0.3 mg/dL (0.2-1.2); Calc. Creatinine Clearance 78 mL/min (70-130); Calcium 9.9 mg/dL (7.8-10.44); Carbon Dioxide 21 mmol/L (23-31); Chloride 107 mmol/L (98-107); Estimated GFR 66; Globulin 3.1 g/dL (2.4-3.5); Glucose 302 mg/dL (83-110); Protein, Total 6.3 g/dL (5.8-8.1); Sodium 139 mmol/L (136-145)
[2023-06-12] MEDS ORDERED: Aspirin 81 mg Enteric Coated Tablet PO SCH (09:00)
[2023-06-12] MEDS ORDERED: ELDERBERRY FRUIT 350 MG PO SCH (09:00)
[2023-06-12 10:19] LABS: Hemoglobin A1c 5.9 % (4.0-6.0)
[2023-06-12 12:02] VITALS: TEMP 97.7
[2023-06-12 13:06] VITALS: BP 134/63
[2023-06-13 21:37] LABS: Mycoplasma pneumoniae IgG AB 201 U/mL (0-99); Mycoplasma pneumoniae IgM AB Less than 770 U/mL (0-769)
== END 2023-06-12 13:45 | disposition home or self-care (01) | DRG 202 ==
LOC: ERS 18:38 → 2NO 20:50 → OBSVTOIN 06-11 13:56
PROVIDERS: ADMIT Internal Medicine; ATTEND Family Medicine
DX: J45.901 Unspecified asthma with (acute) exacerbation (principal); J18.9 Pneumonia, unspecified organism; I10 Essential (primary) hypertension; K21.9 Gastro-esophageal reflux disease without esophagitis; E78.5 Hyperlipidemia, unspecified; M79.7 Fibromyalgia; Z91.041 Radiographic dye allergy status; Z88.0 Allergy status to penicillin; Z88.2 Allergy status to sulfonamides; Z79.899 Other long term (current) drug therapy; Z79.82 Long term (current) use of aspirin; I25.2 Old myocardial infarction; Z90.89 Acquired absence of other organs; Z95.0 Presence of cardiac pacemaker
CPT/HCPCS: 36415; 71046; 71250; 74230; 76705; 78451; 80053; 83036; 83605; 83735; 83880; 84145; 84484; 85025; 85379; 87040; 87070; 87149; 87205; 87449; 87899; 93005; 93306; 93970; 94640; 96365; 96367; 96375; A9540; A9541; J0456; J0696; J1650; J2920; J2930; J3490; J7050; J7611; J7620; J7626

== ENCOUNTER 2023-08-05 09:57 | Outpatient (CLI) | payer OTHER | END 2023-08-05 09:58 | disposition home or self-care (01) | LOC: BICMAMMO 09:57 | PROVIDERS: ATTEND Internal Medicine | DX: N63.23 Unspecified lump in the left breast, lower outer quadrant (principal) | CPT/HCPCS: 76642; 77066; G0279 ==

== ENCOUNTER → 2023-08-08 | Day surgery (SDC) | payer OTHER | LOC: BICULT 12:03 | PROVIDERS: ATTEND Internal Medicine | PROC: 0H9U3ZX Drainage of Left Breast, Percutaneous Approach, Diagnostic (ICD-10-PCS; principal; 2023-08-08) | PROC: 07963ZX Drainage of Left Axillary Lymphatic, Percutaneous Approach, Diagnostic (ICD-10-PCS; 2023-08-08) | DX: C50.512 Malignant neoplasm of lower-outer quadrant of left female breast (principal); Z17.0 Estrogen receptor positive status [ER+] | CPT/HCPCS: 19083; 38505; 76942; 88305; 88342; 88361 ==

== ENCOUNTER 2023-09-08 07:49 | Outpatient (CLI) | payer OTHER | END 2023-09-08 07:50 | disposition home or self-care (01) | LOC: NM 07:49 | PROVIDERS: ATTEND Internal Medicine Hematology & Oncology | DX: C50.812 Malignant neoplasm of overlapping sites of left female breast (principal); R59.0 Localized enlarged lymph nodes; R91.8 Other nonspecific abnormal finding of lung field | CPT/HCPCS: 71260; 74177; 78306; A9503 ==

== ENCOUNTER 2023-09-11 09:24 | Outpatient (CLI) | payer OTHER ==
[2023-09-11 12:50] LABS: #Basophils 0.03 10x3/uL (0.0-0.2); #Eosinphils 0.32 10x3/uL (0.0-0.5); #Monocytes 1.11 10x3/uL (0.0-1.1); #Neutrophils 4.76 10x3/uL (1.5-8.4); %Basophils 0.3 % (0.0-2.0); %Eosinophils 3.5 % (0.0-6.0); %Lymphocytes 31.3 % (18.0-47.0); %Monocytes 12.2 % (0.0-10.0); %Neutrophils 52.4 % (40.0-75.0); Hematocrit 38.8 % (34.9-44.5); Hemoglobin 12.5 g/dL (12.0-15.5); Mean Corpuscular HGB CONC 32.2 g/dL (32.0-36.0); Mean Corpuscular Hemoglobin 31.2 pg (27.0-33.0); Mean Corpuscular Volume 96.8 fL (81.6-98.3); Mean Platelet Volume 11.6 fL (7.4-10.4); Platelet Count 314 10x3/uL (150-450); RBC Distribution Width 12.7 % (11.5-14.5); Red Blood Cell (RBC) Count 4.01 10x6/uL (3.90-5.03); White Blood Cell (WBC) Count 9.1 10x3/uL (3.5-10.5)
[2023-09-11 13:09] LABS: Anion Gap 13 mmol/L (10-20); BUN (Urea Nitrogen) 14 mg/dL (9.8-20.1); Calc. Creatinine Clearance 0 mL/min (70-130); Calcium 9.3 mg/dL (7.8-10.44); Carbon Dioxide 22 mmol/L (23-31); Chloride 107 mmol/L (98-107); Estimated GFR 69; Glucose 114 mg/dL (83-110); Potassium 4.5 mmol/L (3.5-5.1); Sodium 137 mmol/L (136-145)
== END 2023-09-11 09:25 | disposition home or self-care (01) ==
LOC: LABBT 09:24
PROVIDERS: ATTEND Specialist
DX: Z01.818 Encounter for other preprocedural examination (principal); C50.912 Malignant neoplasm of unspecified site of left female breast
CPT/HCPCS: 71046; 80048; 85025; 93005; 93010

== ENCOUNTER 2023-09-15 07:30 | Day surgery (SDC) | payer OTHER ==
[2023-09-11 10:09] VITALS: BMI 36.2
[2023-09-15] MEDS ORDERED: Isosulfan Blue 50 MG/5 ML VIAL ONE (09:02)
[2023-09-15] MEDS ORDERED: EPINEPHrine 1 MG/ML VIAL ONE (09:02)
[2023-09-15] MEDS ORDERED: Bupivacaine 0.25% HCL 30 ML VIAL ONE (09:02)
[2023-09-15] MEDS ORDERED: Lidocaine 1% PF 5 ML VIAL ONE (09:02)
[2023-09-15] MEDS ORDERED: Acetaminophen 500 MG TAB ONE (11:18)
[2023-09-15] MEDS ORDERED: Ketorolac Tromethamine 30 MG (1 mL) VIAL ONE (11:18)
[2023-09-15] MEDS ORDERED: PROPOFOL 40 ML ONE (12:20)
[2023-09-15] MEDS ORDERED: fentaNYL PF 100 MCG/2 ML SYRINGE ONE ×2 (12:20→13:43)
[2023-09-15] MEDS ORDERED: CEFAZOLIN 2 GM VIAL ONE (12:44)
[2023-09-15] MEDS ORDERED: Sodium Chloride 0.9% 100 ML ONE (12:44)
[2023-09-15] MEDS ORDERED: PHENYLEPHRINE-NS 100 MCG/ML 10 ML SYRINGE ONE (13:07)
[2023-09-15] MEDS ORDERED: Dexamethasone 4 mg/ml Vial ONE (13:12)
[2023-09-15] MEDS ORDERED: Ondansetron PF 4 MG/2 ML Vial ONE ×2 (13:12→13:20)
[2023-09-15] MEDS ORDERED: Rocuronium Bromide 10 MG/ML (10ML VIAL) ONE (13:20)
[2023-09-15] MEDS ORDERED: SUGAMMADEX SODIUM 200 MG/2 ML VIAL ONE (13:46)
[2023-09-15] MEDS ORDERED: Glycopyrrolate 0.2 MG/ML 5 ML SYRINGE ONE (13:48)
== END 2023-09-15 16:52 | disposition home or self-care (01) ==
LOC: SDC 07:30
PROVIDERS: ATTEND Specialist
PROC: 0HBU0ZZ Excision of Left Breast, Open Approach (ICD-10-PCS; principal; 2023-09-15)
PROC: 07B60ZZ Excision of Left Axillary Lymphatic, Open Approach (ICD-10-PCS; 2023-09-15)
PROC: C71LYZZ Planar Nuclear Medicine Imaging of Upper Chest Lymphatics using Other Radionuclide (ICD-10-PCS; 2023-09-15)
DX: C50.512 Malignant neoplasm of lower-outer quadrant of left female breast (principal); C77.3 Secondary and unspecified malignant neoplasm of axilla and upper limb lymph nodes; I12.9 Hypertensive chronic kidney disease with stage 1 through stage 4 chronic kidney disease, or unspecified chronic kidney disease; N18.30 Chronic kidney disease, stage 3 unspecified; E78.5 Hyperlipidemia, unspecified; Z79.899 Other long term (current) drug therapy; Z90.89 Acquired absence of other organs; Z88.0 Allergy status to penicillin; Z88.2 Allergy status to sulfonamides; Z88.8 Allergy status to other drugs, medicaments and biological substances; Z91.041 Radiographic dye allergy status; Z91.040 Latex allergy status; Z91.048 Other nonmedicinal substance allergy status
CPT/HCPCS: 19301; 38525; 38900; 76098; 78195; A9541; C1713; J0171; J0665; J1100; J1885; J2405; J2704; J3490; Q9968; 88307

== ENCOUNTER 2023-12-08 09:30 | Outpatient (CLI) | payer OTHER | END 2023-12-08 09:31 | disposition home or self-care (01) | LOC: PET 09:30 | PROVIDERS: ATTEND Internal Medicine Hematology & Oncology | DX: C50.812 Malignant neoplasm of overlapping sites of left female breast (principal); R91.1 Solitary pulmonary nodule; C79.51 Secondary malignant neoplasm of bone | CPT/HCPCS: 78815; A9552 ==

== ENCOUNTER 2023-12-30 14:55 | Outpatient (CLI) | payer OTHER | END 2023-12-30 14:56 | disposition home or self-care (01) | LOC: ULT 14:55 | PROVIDERS: ATTEND Internal Medicine | DX: M79.89 Other specified soft tissue disorders (principal) ==

== ENCOUNTER 2024-02-09 12:30 | Outpatient (CLI) | payer OTHER | END 2024-02-09 12:31 | disposition home or self-care (01) | LOC: PET 12:30 | PROVIDERS: ATTEND Internal Medicine Hematology & Oncology | DX: C50.812 Malignant neoplasm of overlapping sites of left female breast (principal); C79.51 Secondary malignant neoplasm of bone | CPT/HCPCS: 78815; A9552 ==

== ENCOUNTER 2024-05-07 09:30 | Outpatient (CLI) | payer OTHER | END 2024-05-07 09:31 | disposition home or self-care (01) | LOC: PET 09:30 | PROVIDERS: ATTEND Internal Medicine Hematology & Oncology | DX: C50.812 Malignant neoplasm of overlapping sites of left female breast (principal); C79.51 Secondary malignant neoplasm of bone; M89.9 Disorder of bone, unspecified | CPT/HCPCS: 78815; A9552 ==

== ENCOUNTER 2024-11-01 15:39 | Outpatient (CLI) | payer OTHER | END 2024-11-01 15:40 | disposition home or self-care (01) | LOC: BICMAMMO 15:39 | PROVIDERS: ATTEND Specialist | DX: Z12.31 Encounter for screening mammogram for malignant neoplasm of breast (principal); Z90.12 Acquired absence of left breast and nipple; Z85.3 Personal history of malignant neoplasm of breast; Z91.89 Other specified personal risk factors, not elsewhere classified | CPT/HCPCS: 77063; 77067 ==

== ENCOUNTER 2024-11-12 11:00 | Outpatient (CLI) | payer OTHER | END 2024-11-12 11:01 | disposition home or self-care (01) | LOC: PET 11:00 | PROVIDERS: ATTEND Internal Medicine Hematology & Oncology | DX: C50.812 Malignant neoplasm of overlapping sites of left female breast (principal); C79.51 Secondary malignant neoplasm of bone; J90 Pleural effusion, not elsewhere classified; M89.9 Disorder of bone, unspecified; Z79.899 Other long term (current) drug therapy | CPT/HCPCS: 78815; A9552 ==

== ENCOUNTER 2025-01-18 16:00 | Outpatient (CLI) | payer OTHER ==
[~2025-01-18 16:00] MED LIST: Iopamidol-370 76% 500 ML MDV (1 ML CHARGE) ONE
== END 2025-01-18 16:01 | disposition home or self-care (01) ==
LOC: CT 16:00
PROVIDERS: ATTEND Internal Medicine Hematology & Oncology
DX: C50.812 Malignant neoplasm of overlapping sites of left female breast (principal); C79.51 Secondary malignant neoplasm of bone; Z79.899 Other long term (current) drug therapy
CPT/HCPCS: 72193

== ENCOUNTER 2025-02-16 14:17 | Outpatient (CLI) | payer OTHER | END 2025-02-16 14:18 | disposition home or self-care (01) | LOC: RAD 14:17 | PROVIDERS: ATTEND Internal Medicine Cardiovascular Disease | DX: R93.1 Abnormal findings on diagnostic imaging of heart and coronary circulation (principal); J90 Pleural effusion, not elsewhere classified | CPT/HCPCS: 71046 ==

== ENCOUNTER 2025-02-16 17:22 | Inpatient (IN) | payer OTHER ==
[2025-02-16] MEDS ORDERED: Furosemide 40 MG (4 mL) VIAL ONE (18:21)
[2025-02-16 18:43] LABS: #Basophils 0.03 10x3/uL (0.0-0.2); #Eosinophils 0.19 10x3/uL (0.0-0.7); #Monocytes 0.90 10x3/uL (0.11-0.59); #Neutrophils 5.36 10x3/uL (1.40-6.50); %Basophils 0.4 % (0.0-1.0); %Eosinophils 2.5 % (0.0-10.0); %Lymphocytes 15.8 % (21.0-51.0); %Monocytes 11.6 % (0.0-10.0); %Neutrophils 69.2 % (42.0-75.0); Hematocrit 38.6 % (36.0-47.0); Hemoglobin 12.1 g/dL (12.0-16.0); Mean Corpuscular Hemoglobin 30.8 pg (27.0-31.0); Mean Corpuscular Volume 98.2 fL (78.0-98.0); Platelet Count 343 10x3/uL (130-400); Red Blood Cell (RBC) Count 3.93 mill/uL (4.20-5.40); White Blood Cell (WBC) Count 7.74 10x3/uL (4.8-10.8)
[2025-02-16 20:20] LABS: Bacteria/HPF None Seen HPF (None Seen); CAUTI Indications for Culture Fever or rigors; Glucose, Urine (Dipstick) Normal (Negative); Leukocyte 250 Leu/uL (Negative); Protein, Urine (Dipstick) Negative (Neg-Trace); RBC/HPF 0-3 HPF (0-3); Specific Gravity, Urine 1.006 (1.002-1.036); WBC/HPF 0-3 HPF (0-3)
[2025-02-16 20:22] LABS: Urine Culture Reflex No No
[2025-02-16 20:26] LABS: CRP, High Sensitivity at Bryan 0.65 mg/dL (< or = 0.5); Magnesium 2.0 mg/dL (1.6-2.6)
[2025-02-16 20:28] LABS: ALT (SGPT) 23 U/L (Less than 34); AST (SGOT) 32 U/L (11-34); Albumin 3.3 g/dL (3.1-4.5); Alkaline Phosphatase 175 U/L (40-110); Anion Gap 13 mmol/L (10-20); BUN (Urea Nitrogen) 11 mg/dL (9.8-20.1); Bilirubin, Total 0.3 mg/dL (0.3-1.2); Calc. Creatinine Clearance 0 mL/min (70-130); Calcium 9.4 mg/dL (7.8-10.44); Carbon Dioxide 25 mmol/L (23-31); Chloride 108 mmol/L (98-107); Globulin 3.7 g/dL (2.4-3.5); Glucose 96 mg/dL (83-110); Potassium 4.7 mmol/L (3.5-5.1); Sodium 141 mmol/L (136-145)
[2025-02-16] MEDS ORDERED: Acetaminophen 325 MG TAB PO PRN (23:22)
[2025-02-16] MEDS ORDERED: Calcium Carbonate 500 MG ChewTAB PO PRN (23:22)
[2025-02-16] MEDS ORDERED: PHOS-NAK 1 PKT PACK PO PRN (23:30)
[2025-02-16] MEDS ORDERED: Electrolyte Replacement Protocol 1 EACH FS SCH (23:30)
[2025-02-16] MEDS ORDERED: Potassium Chloride 20 MEQ in Premix 1 BAG IVPB PRN (23:30)
[2025-02-17 00:26] VITALS: BMI 28.5
[2025-02-17 05:48] LABS: #Basophils 0.03 10x3/uL (0.0-0.2); #Eosinophils 0.27 10x3/uL (0.0-0.7); #Monocytes 1.08 10x3/uL (0.11-0.59); #Neutrophils 3.91 10x3/uL (1.40-6.50); %Basophils 0.5 % (0.0-1.0); %Eosinophils 4.1 % (0.0-10.0); %Lymphocytes 20.0 % (21.0-51.0); %Monocytes 16.2 % (0.0-10.0); %Neutrophils 58.7 % (42.0-75.0); Hematocrit 37.2 % (36.0-47.0); Hemoglobin 11.8 g/dL (12.0-16.0); Mean Corpuscular Hemoglobin 31.1 pg (27.0-31.0); Mean Corpuscular Volume 98.2 fL (78.0-98.0); Platelet Count 348 10x3/uL (130-400); Red Blood Cell (RBC) Count 3.79 mill/uL (4.20-5.40); White Blood Cell (WBC) Count 6.65 10x3/uL (4.8-10.8)
[2025-02-17 06:10] LABS: ALT (SGPT) 20 U/L (Less than 34); AST (SGOT) 36 U/L (11-34); Albumin 3.0 g/dL (3.1-4.5); Alkaline Phosphatase 159 U/L (40-110); Anion Gap 14 mmol/L (10-20); BUN (Urea Nitrogen) 10 mg/dL (9.8-20.1); Bilirubin, Total 0.3 mg/dL (0.3-1.2); Calc. Creatinine Clearance 73 mL/min (70-130); Calcium 9.0 mg/dL (7.8-10.44); Carbon Dioxide 25 mmol/L (23-31); Chloride 106 mmol/L (98-107); Globulin 3.5 g/dL (2.4-3.5); Glucose 82 mg/dL (83-110); Magnesium 1.7 mg/dL (1.6-2.6); Potassium 3.8 mmol/L (3.5-5.1); Sodium 141 mmol/L (136-145)
[2025-02-17] MEDS: Magnesium 2 GM/50 ML(in water) 2 GM in Premix 1 BAG IVPB PRN (06:43)
[2025-02-17 08:13] LABS: INR-International Normal Ratio 1.1; Prothrombin Time 14.5 sec (12.0-14.7)
[2025-02-17] MEDS ORDERED: Non-Formulary Item 1 EACH (Cholecalciferol (Vitamin D3) [Vitamin D3] 2,000 UNIT Capsule) PO SCH (09:10)
[2025-02-17] MEDS ORDERED: Non-Formulary Item 1 EACH (Ascorbic Acid [Vitamin C] 1,000 MG Tablet) PO SCH (09:10)
[2025-02-17] MEDS ORDERED: Non-Formulary Item 1 EACH (Omeprazole [Omeprazole] 20 MG Capsule.Dr) PO SCH (09:11)
[2025-02-17] MEDS ORDERED: Non-Formulary Item 1 EACH (Losartan [Cozaar] 50 MG Tab) PO SCH (09:11)
[2025-02-17] MEDS ORDERED: Non-Formulary Item 1 EACH (Zinc Sulfate [Zinc] 50 MG Tablet) PO SCH (09:12)
[2025-02-17] MEDS: Cholecalciferol 1,000 UNITS (25 MCG) TAB PO SCH (09:44)
[2025-02-17] MEDS: Aspirin 81 mg Enteric Coated Tablet PO SCH (09:44)
[2025-02-17] MEDS: Pantoprazole 40 MG DR.TAB PO SCH (09:44)
[2025-02-17] MEDS: Losartan 25 MG TAB PO SCH (09:44)
[2025-02-17] MEDS: Carvedilol 6.25 MG TAB PO SCH (09:45)
[2025-02-17 09:58] VITALS: BMI 28.5
[2025-02-17 11:02] LABS: Magnesium 2.3 mg/dL (1.6-2.6)
[2025-02-17] MEDS: HYDROcodone/Acetaminophen 7.5/325 mg Tablet PO PRN (15:32)
[2025-02-17] MEDS ORDERED: Non-Formulary Item 1 EACH (Zolpidem Tartrate [Ambien] 10 MG Tablet) PO SCH (21:00)
[2025-02-17] MEDS ORDERED: Simvastatin 10 MG TAB PO SCH (21:00)
[2025-02-18 04:50] LABS: Anion Gap 12 mmol/L (10-20); BUN (Urea Nitrogen) 10 mg/dL (9.8-20.1); Calc. Creatinine Clearance 76 mL/min (70-130); Calcium 9.0 mg/dL (7.8-10.44); Carbon Dioxide 23 mmol/L (23-31); Chloride 108 mmol/L (98-107); Glucose 88 mg/dL (83-110); Potassium 3.9 mmol/L (3.5-5.1); Sodium 139 mmol/L (136-145)
[2025-02-18] MEDS ORDERED: PHOS-NAK 1 PKT PACK PO PRN (16:15)
[2025-02-18] MEDS ORDERED: Magnesium Sulfate In Water 4 GM in Premix 1 BAG IVPB PRN (16:15)
[2025-02-18] MEDS ORDERED: Potassium Chloride 20 MEQ in Premix 1 BAG IVPB PRN (16:15)
[2025-02-18 16:45] LABS: RBC Count-Automated (BF) 7945 /cu.mm; WBC/Nucleated-Auto (BF) 172 /cu.mm
[2025-02-18 17:10] LABS: BF Segmented Neutrophils 4 %; Cell Count Non Hematic 12 %
[2025-02-18 17:11] LABS: Fluid, Triglycerides 26.0 mg/dL (Not Available); Pleural Fluid, Amylase 35.0 U/L (Not Available); Pleural Fluid, Glucose 114.0 mg/dL; Pleural Fluid, LDH 221.0 U/L (Not Available); Pleural Fluid, Protein 3.8 g/dL
[2025-02-18] MEDS: Benzonatate 100 MG CAP PO PRN (21:37)
[2025-02-19 04:47] LABS: Anion Gap 15 mmol/L (10-20); BUN (Urea Nitrogen) 11 mg/dL (9.8-20.1); Calc. Creatinine Clearance 76 mL/min (70-130); Calcium 9.0 mg/dL (7.8-10.44); Carbon Dioxide 23 mmol/L (23-31); Chloride 106 mmol/L (98-107); Glucose 101 mg/dL (83-110); Potassium 4.3 mmol/L (3.5-5.1); Sodium 140 mmol/L (136-145)
[2025-02-23] MEDS: Cyclobenzaprine 10 MG TAB PO PRN (16:56)
[2025-02-23 17:14] LABS: #Basophils Less than 0.03 10x3/uL (0.0-0.2); #Eosinophils 0.32 10x3/uL (0.0-0.7); #Monocytes 1.12 10x3/uL (0.11-0.59); #Neutrophils 5.06 10x3/uL (1.40-6.50); %Basophils 0.3 % (0.0-1.0); %Eosinophils 4.2 % (0.0-10.0); %Lymphocytes 13.1 % (21.0-51.0); %Monocytes 14.8 % (0.0-10.0); %Neutrophils 66.9 % (42.0-75.0); Hematocrit 36.3 % (36.0-47.0); Hemoglobin 11.6 g/dL (12.0-16.0); Mean Corpuscular Hemoglobin 31.4 pg (27.0-31.0); Mean Corpuscular Volume 98.1 fL (78.0-98.0); Platelet Count 320 10x3/uL (130-400); Red Blood Cell (RBC) Count 3.70 mill/uL (4.20-5.40); White Blood Cell (WBC) Count 7.56 10x3/uL (4.8-10.8)
[2025-02-23 17:34] LABS: ALT (SGPT) 20 U/L (Less than 34); AST (SGOT) 40 U/L (11-34); Albumin 2.7 g/dL (3.1-4.5); Alkaline Phosphatase 162 U/L (40-110); Anion Gap 12 mmol/L (10-20); BUN (Urea Nitrogen) 15 mg/dL (9.8-20.1); Bilirubin, Total 0.3 mg/dL (0.3-1.2); Calc. Creatinine Clearance 76 mL/min (70-130); Calcium 9.5 mg/dL (7.8-10.44); Carbon Dioxide 26 mmol/L (23-31); Chloride 104 mmol/L (98-107); Globulin 3.4 g/dL (2.4-3.5); Glucose 95 mg/dL (83-110); Potassium 4.4 mmol/L (3.5-5.1); Sodium 138 mmol/L (136-145)
[2025-02-23] MEDS: Ondansetron PF 4 MG/2 ML Vial IVP PRN (18:43)
[2025-02-24 05:36] LABS: #Basophils 0.03 10x3/uL (0.0-0.2); #Eosinophils 0.32 10x3/uL (0.0-0.7); #Monocytes 1.00 10x3/uL (0.11-0.59); #Neutrophils 3.87 10x3/uL (1.40-6.50); %Basophils 0.5 % (0.0-1.0); %Eosinophils 5.1 % (0.0-10.0); %Lymphocytes 16.2 % (21.0-51.0); %Monocytes 16.0 % (0.0-10.0); %Neutrophils 61.9 % (42.0-75.0); Hematocrit 35.3 % (36.0-47.0); Hemoglobin 11.0 g/dL (12.0-16.0); Mean Corpuscular Hemoglobin 30.8 pg (27.0-31.0); Mean Corpuscular Volume 98.9 fL (78.0-98.0); Platelet Count 295 10x3/uL (130-400); Red Blood Cell (RBC) Count 3.57 mill/uL (4.20-5.40); White Blood Cell (WBC) Count 6.25 10x3/uL (4.8-10.8)
[2025-02-24 05:37] LABS: ALT (SGPT) 17 U/L (Less than 34); AST (SGOT) 33 U/L (11-34); Albumin 2.5 g/dL (3.1-4.5); Alkaline Phosphatase 155 U/L (40-110); Anion Gap 7 mmol/L (10-20); BUN (Urea Nitrogen) 11 mg/dL (9.8-20.1); Bilirubin, Total 0.3 mg/dL (0.3-1.2); Calc. Creatinine Clearance 84 mL/min (70-130); Calcium 9.3 mg/dL (7.8-10.44); Carbon Dioxide 27 mmol/L (23-31); Chloride 107 mmol/L (98-107); Globulin 3.2 g/dL (2.4-3.5); Glucose 90 mg/dL (83-110); Potassium 4.2 mmol/L (3.5-5.1); Sodium 137 mmol/L (136-145)
[2025-02-25 04:49] LABS: #Basophils Less than 0.03 10x3/uL (0.0-0.2); #Eosinophils 0.23 10x3/uL (0.0-0.7); #Monocytes 0.99 10x3/uL (0.11-0.59); #Neutrophils 4.44 10x3/uL (1.40-6.50); %Basophils 0.3 % (0.0-1.0); %Eosinophils 3.5 % (0.0-10.0); %Lymphocytes 13.9 % (21.0-51.0); %Monocytes 14.9 % (0.0-10.0); %Neutrophils 66.9 % (42.0-75.0); Hematocrit 35.7 % (36.0-47.0); Hemoglobin 11.4 g/dL (12.0-16.0); Mean Corpuscular Hemoglobin 31.1 pg (27.0-31.0); Mean Corpuscular Volume 97.3 fL (78.0-98.0); Platelet Count 299 10x3/uL (130-400); Red Blood Cell (RBC) Count 3.67 mill/uL (4.20-5.40); White Blood Cell (WBC) Count 6.63 10x3/uL (4.8-10.8)
[2025-02-25 05:04] LABS: Anion Gap 9 mmol/L (10-20); BUN (Urea Nitrogen) 18 mg/dL (9.8-20.1); Calc. Creatinine Clearance 79 mL/min (70-130); Calcium 9.2 mg/dL (7.8-10.44); Carbon Dioxide 24 mmol/L (23-31); Chloride 106 mmol/L (98-107); Glucose 94 mg/dL (83-110); Potassium 4.1 mmol/L (3.5-5.1); Sodium 135 mmol/L (136-145)
[2025-02-25] MEDS ORDERED: PROPOFOL 20 ML ONE (08:18)
[2025-02-25] MEDS ORDERED: fentaNYL PF 100 MCG/2 ML SYRINGE ONE ×3 (08:18→11:49)
[2025-02-25] MEDS ORDERED: Bupivacaine 0.25% HCL 30 ML VIAL ONE (08:51)
[2025-02-25] MEDS ORDERED: PROPOFOL 200 MG/20 ML VIAL ONE (09:14)
[2025-02-25] MEDS ORDERED: Lidocaine 1% PF 5 ML VIAL ONE (09:14)
[2025-02-25] MEDS ORDERED: Rocuronium Bromide 10 MG/ML (10ML VIAL) ONE (09:14)
[2025-02-25] MEDS ORDERED: SUGAMMADEX SODIUM 200 MG/2 ML VIAL ONE (09:46)
[2025-02-25] MEDS ORDERED: HYDROmorphone 0.5 MG/0.5 ML SYRINGE ONE (10:54)
[2025-02-25] MEDS: Ketorolac Tromethamine 30 MG (1 mL) VIAL IVP SCH (14:07)
[2025-02-25] MEDS: Cyclobenzaprine 10 MG TAB PO SCH (15:42)
[2025-02-26 04:31] LABS: #Basophils Less than 0.03 10x3/uL (0.0-0.2); #Eosinophils Less than 0.03 10x3/uL (0.0-0.7); #Monocytes 0.56 10x3/uL (0.11-0.59); #Neutrophils 9.34 10x3/uL (1.40-6.50); %Basophils 0.1 % (0.0-1.0); %Eosinophils 0.0 % (0.0-10.0); %Lymphocytes 5.8 % (21.0-51.0); %Monocytes 5.3 % (0.0-10.0); %Neutrophils 88.3 % (42.0-75.0); Hematocrit 34.8 % (36.0-47.0); Hemoglobin 11.5 g/dL (12.0-16.0); Mean Corpuscular Hemoglobin 31.8 pg (27.0-31.0); Mean Corpuscular Volume 96.1 fL (78.0-98.0); Platelet Count 304 10x3/uL (130-400); Red Blood Cell (RBC) Count 3.62 mill/uL (4.20-5.40); White Blood Cell (WBC) Count 10.57 10x3/uL (4.8-10.8)
[2025-02-26 04:43] LABS: Anion Gap 13 mmol/L (10-20); BUN (Urea Nitrogen) 21 mg/dL (9.8-20.1); Calc. Creatinine Clearance 68 mL/min (70-130); Calcium 8.6 mg/dL (7.8-10.44); Carbon Dioxide 22 mmol/L (23-31); Chloride 104 mmol/L (98-107); Glucose 143 mg/dL (83-110); Potassium 4.3 mmol/L (3.5-5.1); Sodium 135 mmol/L (136-145)
[2025-02-26] MEDS: Pantoprazole 40 MG VIAL IVP SCH (09:20)
[2025-02-26] MEDS: Transdermal Patch Removal LIDOCAINE TOP SCH (20:19)
[2025-02-27 05:18] LABS: #Basophils Less than 0.03 10x3/uL (0.0-0.2); #Eosinophils 0.18 10x3/uL (0.0-0.7); #Monocytes 1.23 10x3/uL (0.11-0.59); #Neutrophils 8.57 10x3/uL (1.40-6.50); %Basophils 0.2 % (0.0-1.0); %Eosinophils 1.6 % (0.0-10.0); %Lymphocytes 9.1 % (21.0-51.0); %Monocytes 11.1 % (0.0-10.0); %Neutrophils 77.5 % (42.0-75.0); Hematocrit 35.0 % (36.0-47.0); Hemoglobin 11.2 g/dL (12.0-16.0); Mean Corpuscular Hemoglobin 31.1 pg (27.0-31.0); Mean Corpuscular Volume 97.2 fL (78.0-98.0); Platelet Count 311 10x3/uL (130-400); Red Blood Cell (RBC) Count 3.60 mill/uL (4.20-5.40); White Blood Cell (WBC) Count 11.07 10x3/uL (4.8-10.8)
[2025-02-27 05:42] LABS: Anion Gap 6 mmol/L (10-20); BUN (Urea Nitrogen) 24 mg/dL (9.8-20.1); Calc. Creatinine Clearance 69 mL/min (70-130); Calcium 8.6 mg/dL (7.8-10.44); Carbon Dioxide 23 mmol/L (23-31); Chloride 107 mmol/L (98-107); Glucose 85 mg/dL (83-110); Potassium 4.0 mmol/L (3.5-5.1); Sodium 132 mmol/L (136-145)
[2025-02-27 14:20] VITALS: BP 127/76; TEMP 98.1
== END 2025-02-27 15:15 | disposition home or self-care (01) | DRG 163 ==
LOC: ERS 17:22 → ERHOLD 21:20 → MSONC 02-17 00:20
PROVIDERS: ADMIT Student in an Organized Health Care Education/Training Program; ATTEND Student in an Organized Health Care Education/Training Program
PROC: 0W9B3ZZ Drainage of Left Pleural Cavity, Percutaneous Approach (ICD-10-PCS; 2025-02-18)
PROC: 0BDP4ZX Extraction of Left Pleura, Percutaneous Endoscopic Approach, Diagnostic (ICD-10-PCS; principal; 2025-02-25)
PROC: 0B9P30Z Drainage of Left Pleura with Drainage Device, Percutaneous Approach (ICD-10-PCS; 2025-02-25)
DX: C78.02 Secondary malignant neoplasm of left lung (principal); E43 Unspecified severe protein-calorie malnutrition; J91.0 Malignant pleural effusion; C78.7 Secondary malignant neoplasm of liver and intrahepatic bile duct; C50.912 Malignant neoplasm of unspecified site of left female breast; Z88.0 Allergy status to penicillin; Z91.040 Latex allergy status; Z91.048 Other nonmedicinal substance allergy status; I25.10 Atherosclerotic heart disease of native coronary artery without angina pectoris; I10 Essential (primary) hypertension; J45.909 Unspecified asthma, uncomplicated; Z95.0 Presence of cardiac pacemaker; Z98.890 Other specified postprocedural states; Z90.12 Acquired absence of left breast and nipple; E78.5 Hyperlipidemia, unspecified; Z68.28 Body mass index [BMI] 28.0-28.9, adult; K44.9 Diaphragmatic hernia without obstruction or gangrene; K21.9 Gastro-esophageal reflux disease without esophagitis; C78.01 Secondary malignant neoplasm of right lung; R93.1 Abnormal findings on diagnostic imaging of heart and coronary circulation
CPT/HCPCS: 36000; 36415; 71045; 71046; 71260; 74177; 80048; 80053; 81001; 82150; 82945; 83605; 83615; 83735; 83880; 84100; 84157; 84443; 84478; 84484; 85025; 85060; 85610; 86141; 87040; 87086; 87116; 87206; 88112; 88305; 88341; 88342; 88360; 89051; 93005; 93970; 96374; A7048; J0169; J0665; J1100; J1171; J1642; J1885; J1940; J2272; J2405; J2470; J2704; J3010; J3475; J7120; J7512; Q0162